=== PATIENT | female | born 1965 | race Two or more races ===

== ENCOUNTER 2017-02-22 05:47 | Emergency (ER) | payer MEDICAID ==
[~2017-02-22] VITALS: Ht 183.5 cm; Wt 146.1 kg
[~2017-02-22 05:47] MED LIST: ALBUTEROL SULF8.5 GM INH; AMOXICILLIN500 MG PO; ANUSOL-HC CREAM30 GM RECTAL; AZITHROMYCIN250 MG PO; CORTISPORIN10 ML OT; DOXYCYCLINE MO100 MG PO; FLOVENT2 PUFFS INH; IBUPROFEN600 MG PO; LOSARTAN-HCTZ1 EACH PO; PHENERGAN/CODE120 ML ORAL; PHENERGAN/CODE120 ML PO; PREDNISONE50 MG ORAL; PREDNISONE50 MG PO; PREMPRO 0.625-1 EAC1 PO; PRILOSEC40 MG PO; PROAIR HFA8.5 GM INH; PULMICORT FLEX90 MCG IH; SINGULAIR10 MG PO; SYNTHROID100 MCG PO; VENTOLIN HFA18 GM INH; VICODIN 5-5001 EACH PO; ZANTAC150 MG PO; ZITHROMAX250 MG ORAL
--- NOTE | 2017-02-22 06:20 | Emergency Room Report ---
History of Present Illness General Chief Complaint: Female Urogenital Problems Source: Patient Present Illness [facility] This is a 51-year-old female with no significant past medical history. She presents with chief complaint of vaginal bleeding. She is currently in perimenopausal. She had a menstrual cycle last month. She said it was heavy. He came on again yesterday. She said she is bleeding excessively. Better her definition, excessive is 3 pads all day. She came in this morning because she' s went to the bathroom and had blood in the toilet. No lightheadedness. No dizziness. No abdominal pain. Mild cramp. No other complaint. Allergies: Coded Allergies: No Known Allergies (Unverified , 08/16/12) Patient History Past Medical History: see triage record, old chart reviewed Past Surgical History: other Pertinent Family History: none Social History: Denies: smoking Last Menstrual Period: now Now: No Immunizations: other Reviewed Nursing Documentation: PMH: Agreed, PSxH: Agreed Nursing Documentation-PMH Hx Hypertension: Yes Hx Asthma: Yes - BRONCHITIS Hx Gastrointestinal Problems: Yes - ACID REFLUX Review of Systems Eye: Denies: blurred vision, eye pain ENT: Denies: ear pain, nose congestion, throat swelling Respiratory: Denies: cough, shortness of breath Cardiovascular: Denies: chest pain, palpitations Gastrointestinal: Denies: abdominal pain, diarrhea, nausea, vomiting Genitourinary: Reports: vag bleed/dc Musculoskeletal: Denies: back pain, joint pain Skin: Denies: rash Neurological: Denies: headache, numbness Endocrine: Denies: increased thirst, increased urine Hematologic/Lymphatic: Denies: easy bruising All Other Systems: negative except mentioned in HPI Physical Exam Vital Signs Date Time Temp Pulse Resp B/P Pulse Ox O2 Delivery O2 Flow Rate FiO2 02/22/17 05:51 98.4 102 20 142/92 97 Room Air vitals normal Sp02 EP Interpretation: reviewed, normal General Appearance: well appearing, no apparent distress, alert Head: normocephalic, atraumatic Eyes: bilateral eye EOMI, bilateral eye PERRL ENT: hearing grossly normal, normal pharynx Neck: full range of motion, supple, no meningismus Respiratory: chest non-tender, lungs clear, normal breath sounds Cardiovascular #1: regular rate, rhythm, no murmur Gastrointestinal: normal bowel sounds, non tender, no mass, no organomegaly, no bruit, non-distended Genitourinary: other - Patient refused a pelvic exam Musculoskeletal: back normal, gait/station normal, normal range of motion Neurologic: alert, oriented x3 Psychiatric: mood/affect normal Skin: warm/dry Medical Decision Making Diagnostic Impression: Primary Impression: Dysfunctional uterine bleeding ER Course Patient with uterine bleeding. 3 pads in one day is not excessive. Hemoglobin is stable. She wanted to be on control pill. Explained to her with her age, she has increased risk for PE/DVT. She is almost at menopause already. I am uncomfortable prescribing on oral therapy at this stage. She can be referred to an oncologist. She said she will be able to see one for a month. She got mad this and never made appointment. Last Vital Signs Date Time Temp Pulse Resp B/P Pulse Ox O2 Delivery O2 Flow Rate FiO2 02/22/17 05:51 98.4 102 20 142/92 97 Room Air Status: improved Disposition: HOME, SELF-CARE Condition: Stable Referrals: [facility],REFERRING (PCP) Additional Instructions: Followup with your DrSweta in 7 days. You will need a referral to see a resident advisor. Return if symptom worsen. JACOB MCKENNA M.D. Feb 22, 2017 06:20
[2017-02-22 06:32] LABS: BASOPHILS % (AUTO) 1.1 % (0.0-2.0); LYMPHOCYTES % (AUTO) 45.3 % (20.0-45.0); MEAN CORPUSCULAR HGB CONC 32.2 G/DL (32.0-36.0); MEAN CORPUSCULAR VOLUME 84 FL (80-99); MEAN PLATELET VOLUME 5.7 FL (6.5-10.1); MONOCYTES % (AUTO) 6.2 % (1.0-10.0); NEUTROPHILS % (AUTO) 44.3 % (45.0-75.0); PLATELET COUNT 375 K/UL (150-450); RED BLOOD COUNT 5.11 M/UL (4.20-5.40); RED CELL DISTRIBUTION WIDTH 12.7 % (11.6-14.8); WHITE BLOOD COUNT 10.4 K/UL (4.8-10.8)
[2017-02-22 06:46] VITALS: BP 145/90
== END 2017-02-22 06:49 | disposition home or self-care (01) ==
LOC: EMR 06:09
DX: N93.8 Other specified abnormal uterine and vaginal bleeding (principal); I10 Essential (primary) hypertension; J45.909 Unspecified asthma, uncomplicated; K21.9 Gastro-esophageal reflux disease without esophagitis
CPT/HCPCS: 36415; 85025; 99282

== ENCOUNTER 2017-04-04 09:21 | Emergency (ER) | payer MEDICAID ==
[~2017-04-04] VITALS: Ht 182.9 cm; Wt 98.0 kg
[2017-04-04] MEDS ORDERED: METFORMIN HCL500 M1 ORAL (09:38)
[2017-04-04 09:40] VITALS: BP 147/89
[2017-04-04] MEDS ORDERED: PREDNISONE20 MG ORAL (10:06)
[2017-04-04] MEDS ORDERED: ACETAMINOPHEN-1 EAC1 ORAL (10:06)
[2017-04-04] MEDS ORDERED: PredniSONE 20mg tab ORAL ONE (10:15)
[2017-04-04 10:17] VITALS: BP 147/89
--- NOTE | 2017-04-04 10:45 | Emergency Room Report ---
History of Present Illness General Chief Complaint: Dyspnea/Respdistress Source: Patient Present Illness HPI [id number] [employer] walk-in patient with 1 month of productive cough. Finished clarithromycin Abx from PMD Has asthma, using inhalers as well Still with lots of sputum Denies chest pain, fever/chills Allergies: Coded Allergies: No Known Allergies (Unverified , 08/16/12) Patient History Past Medical History: none Past Surgical History: none Pertinent Family History: none Social History: Denies: alcohol use, drug use, smoking Last Menstrual Period: na Now: No Immunizations: UTD Reviewed Nursing Documentation: PMH: Agreed, PSxH: Agreed Nursing Documentation-PMH Past Medical History: No History, Except For Hx Hypertension: Yes Hx Asthma: Yes - BRONCHITIS Hx Diabetes: Yes Hx Gastrointestinal Problems: Yes - gerd History Of Psychiatric Problem: Yes - anxiety Review of Systems All Other Systems: negative except mentioned in HPI Physical Exam Vital Signs Date Time Temp Pulse Resp B/P Pulse Ox O2 Delivery O2 Flow Rate FiO2 04/04/17 09:24 98.2 95 22 147/89 97 Room Air Sp02 EP Interpretation: reviewed, normal General Appearance: normal inspection, well appearing, no apparent distress, alert, GCS 15, non-toxic Head: normocephalic, atraumatic Eyes: bilateral eye EOMI, bilateral eye PERRL ENT: normal ENT inspection, hearing grossly normal, normal voice Neck: normal inspection, full range of motion, supple, no bony tend Respiratory: normal inspection, lungs clear, normal breath sounds, no respiratory distress, no retraction, no accessory muscle use, no wheezing, speaking full sentences Cardiovascular #1: regular rate, rhythm, no edema Gastrointestinal: normal inspection, normal bowel sounds, non tender, soft, no guarding, no hernia Genitourinary: no CVA tenderness Musculoskeletal: normal inspection, back normal, normal range of motion, Stephanie' s Sign negative Neurologic: normal inspection, alert, oriented x3, responsive, 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 Afebrile. Not hypoxic. No wheezing. Lungs CTAB Not in asthma exacerbation CXR no PNA Likely continued bronchitis Reassured patient Gave prednisone Rx prednisone Close PMD followup Chest X-Ray Diagnostic Results Chest X-Ray Diagnostic Results : Chest X-Ray Ordered: Yes # of Views/Limited/Complete: 1 View Indication: Shortness of Breath EP Interpretation: Yes Interpretation: no consolidation, no effusion, no pneumothorax, no acute cardiopulmonary disease Impression: No acute disease Interpreting ER Provider: Electronically signed by Dr Keen Last Vital Signs Date Time Temp Pulse Resp B/P Pulse Ox O2 Delivery O2 Flow Rate FiO2 04/04/17 10:17 98.2 95 22 147/89 97 Room Air Status: improved Disposition: HOME, SELF-CARE Condition: Improved Scripts Acetaminophen With Codeine (T#3) (TYLENOL #3 TAB*) Y Tab 1 TAB ORAL QHS Y for cough, pain for 7 Days, #20 TAB Prov: CHRISTOPHER KEEN M.D. 04/04/17 Prednisone* (PREDNISONE*) 20 Mg Tablet 40 MG ORAL DAILY for 3 Days, #3 TAB Prov: CHRISTOPHER KEEN M.D. 04/04/17 Patient Instructions: Acute Bronchitis, [id number] Additional Instructions: - Take prednisone once daily for next 3 days - Use tylenol codeine at night for cough/chest pain/sleep - Continue to use inhalers as needed for cough, shortness of breath, during the day bronchitis symptoms can last 6-8 weeks CHRISTOPHER KEEN M.D. Apr 04, 2017 10:45
--- NOTE | 2017-04-04 11:25 | Diagnostic Imaging Report ---
Indication: Dyspnea Comparison: 12/23/12 A single view chest radiograph was obtained. Findings: Cardiomediastinal appearance is within normal limits for age. Pulmonary vascularity is appropriate. The diaphragmatic contour is smooth and costophrenic angles are sharp. No pleural effusions are identified. The bones are unremarkable. Impression: No acute findings
== END 2017-04-04 10:17 | disposition home or self-care (01) ==
LOC: EMR 09:44
DX: J20.9 Acute bronchitis, unspecified (principal); F41.9 Anxiety disorder, unspecified; K21.9 Gastro-esophageal reflux disease without esophagitis; E11.9 Type 2 diabetes mellitus without complications; J45.909 Unspecified asthma, uncomplicated; I10 Essential (primary) hypertension
CPT/HCPCS: 71010; 99284

== ENCOUNTER 2017-08-04 12:52 | Emergency (ER) | payer MEDICAID ==
[~2017-08-04] VITALS: Ht 182.9 cm; Wt 141.5 kg
[~2017-08-04 12:52] MED LIST changes: +ACETAMINOPHEN-1 EAC1 ORAL; +METFORMIN HCL500 M1 ORAL; +PREDNISONE20 MG ORAL
[2017-08-04] MEDS ORDERED: Ipratropium 0.02% Inh Soln 2.5ml UD HHN ONE (13:30)
[2017-08-04] MEDS: Albuterol ud Inhalation HHN SCH ×3 (13:32→14:07)
--- NOTE | 2017-08-04 15:13 | Emergency Room Report ---
History of Present Illness General Chief Complaint: Flu Like Symptoms Source: Patient Present Illness HPI Patient presents with wheezing and productive cough with thick green sputum. Hard to expectorate. Only using nebulizer twice daily. She has run out of her inhaler. No fevers or sore throat. Some chest pain with coughing. Coughing violently in he AM to the point of having some stress incontinence (minimal). Pain in chest rated 4/10, aching, anterior, not radiating. She has taken prednisone in the past. This is not her worst attack and she states this is usually what happens when she gets bronchitis with her asthma, though the sputum is thicker. No NVD, rashes, headache. No dysuria. No muscle aches. Therefore, she is fairly certain this is not influenza. Allergies: Coded Allergies: No Known Allergies (Unverified , 08/16/12) Patient History Past Medical History: see triage record Social History: Denies: smoking Social History Narrative at home Reviewed Nursing Documentation: PMH: Agreed, PSxH: Agreed Nursing Documentation-PMH Hx Hypertension: Yes Hx Asthma: Yes - BRONCHITIS Hx Diabetes: Yes Hx Gastrointestinal Problems: Yes - gerd Review of Systems All Other Systems: negative except mentioned in HPI Physical Exam Vital Signs Date Time Temp Pulse Resp B/P (MAP) Pulse Ox O2 Delivery O2 Flow Rate FiO2 08/04/17 12:57 98.1 103 20 149/101 99 Room Air 08/04/17 13:33 21 Sp02 EP Interpretation: reviewed, normal General Appearance: well appearing, no apparent distress, GCS 15 Head: normocephalic Eyes: bilateral eye normal inspection, bilateral eye PERRL ENT: moist mucus membranes Neck: supple Respiratory: no accessory muscle use, wheezing, expiration Cardiovascular #1: regular rate, rhythm Cardiovascular #2: 2+ radial (R) Gastrointestinal: normal inspection, normal bowel sounds, non tender, no mass, non-distended, overweight Musculoskeletal: back normal, gait/station normal, normal range of motion, no calf tenderness Neurologic: alert, oriented x3, grossly normal Psychiatric: mood/affect normal Skin: normal inspection, warm/dry Medical Decision Making Diagnostic Impression: Primary Impression: Asthmatic bronchitis with acute exacerbation Qualified Codes: J45.41 - Moderate persistent asthma with (acute) exacerbation ER Course Patient presents with wheezing and productive cough. DDx: pna, asthmatic bronchitis, COPD exacerbation amongst others. VS against PE. No vomiting and afebrile, so labs not indicated. With chest pressure EKG indicated. Also CXR to exclude pneumonia. Treatment with prednisone and breathing treatments. With productive and colored sputum, antibiotics indicated. EKG without injury. CXR without infiltrate. Improved with treatment. Stable for outpatient observation and treatment. EKG Diagnostic Results Rate: normal Rhythm: NSR ST Segments: no acute changes Rhythm Strip Diag. Results EP Interpretation: yes Rhythm: NSR, no PVC's, no ectopy Chest X-Ray Diagnostic Results Chest X-Ray Diagnostic Results : Chest X-Ray Ordered: Yes # of Views/Limited/Complete: 1 View Indication: Other EP Interpretation: Yes Interpretation: no consolidation, no effusion, no pneumothorax, no acute cardiopulmonary disease Impression: No acute disease Electronically Signed by: Melchor Braswell MD Last Vital Signs Date Time Temp Pulse Resp B/P (MAP) Pulse Ox O2 Delivery O2 Flow Rate FiO2 08/04/17 15:33 86 18 143/85 96 Room Air 08/04/17 15:33 98.5 08/04/17 14:18 21 O2 sat slightly low as interpreted by me but talking in full sentences without dyspnea. Status: improved Disposition: HOME, SELF-CARE Condition: Improved Scripts Clarithromycin* (CLARITHROMYCIN*) 500 Mg Tablet 500 MG PO Q12HR, #14 TAB Prov: Roger Myers 08/04/17 Albuterol Sulfate* (ALBUTEROL SULFATE MDI*) 8.5 Gm Hfa.aer.ad 2 PUFF INH Q6H, #1 EA 1 Refill Prov: Melchor Braswell M.D. 08/04/17 Prednisone* (PREDNISONE*) 20 Mg Tablet 40 MG ORAL DAILY, #10 TAB Prov: Melchor Braswell M.D. 08/04/17 Guaifenesin/Codeine Phos* (ROBITUSSIN AC*) 118 Ml Liquid 5 ML ORAL Q6H Y for For Cough, #118 ML 0 Refills Prov: Melchor Braswell M.D. 08/04/17 Referrals: [facility],REFERRING (PCP) Melchor Braswell M.D. Aug 04, 2017 15:13
[2017-08-04] MEDS ORDERED: Levofloxacin 500mg tab ORAL ONE (15:15)
[2017-08-04] MEDS ORDERED: GUAIFENESIN-CO118 M1 ORAL (15:16)
[2017-08-04] MEDS ORDERED: LEVAQUIN500 MG ORAL (15:16)
[2017-08-04] MEDS ORDERED: PREDNISONE20 MG ORAL (15:16)
[2017-08-04] MEDS ORDERED: ALBUTEROL SULF8.5 GM INH (15:16)
[2017-08-04 15:33] VITALS: BP 135/82
[2017-08-04] MEDS ORDERED: CLARITHROMYCIN500 MG PO (20:25)
--- NOTE | 2017-08-23 14:52 | Cardiology Report ---
APPROVED REPORT EKG Measurement Heart [id number] Normal sinus rhythm Normal ECG
== END 2017-08-04 15:42 | disposition home or self-care (01) ==
LOC: EMR 13:10
DX: J45.901 Unspecified asthma with (acute) exacerbation (principal); E11.9 Type 2 diabetes mellitus without complications; I10 Essential (primary) hypertension; K21.9 Gastro-esophageal reflux disease without esophagitis
CPT/HCPCS: 93005; 94640; 94664; 99284

== ENCOUNTER 2017-08-16 16:29 | Emergency (ER) | payer MEDICAID ==
[~2017-08-16] VITALS: Ht 182.9 cm; Wt 141.5 kg
[~2017-08-16 16:29] MED LIST changes: +CLARITHROMYCIN500 MG PO; +GUAIFENESIN-CO118 M1 ORAL; +LEVAQUIN500 MG ORAL
[2017-08-16 17:00] VITALS: BP 129/72
[2017-08-16] MEDS ORDERED: Albuterol ud Inhalation HHN ONE (17:00)
--- NOTE | 2017-08-16 17:41 | Diagnostic Imaging Report ---
Indication: SOB Technique: One view of the chest Comparison: none Findings: Lungs and pleural spaces are clear. Heart size is normal. No significant change Impression: No acute process
[2017-08-16 18:43] LABS: BASOPHILS % (AUTO) 1.1 % (0.0-2.0); EOSINOPHILS % (AUTO) 2.3 % (0.0-3.0); LYMPHOCYTES % (AUTO) 45.4 % (20.0-45.0); MEAN CORPUSCULAR HEMOGLOBIN 26.3 PG (27.0-31.0); MEAN CORPUSCULAR HGB CONC 30.7 G/DL (32.0-36.0); MEAN CORPUSCULAR VOLUME 86 FL (80-99); MEAN PLATELET VOLUME 5.5 FL (6.5-10.1); MONOCYTES % (AUTO) 5.5 % (1.0-10.0); NEUTROPHILS % (AUTO) 45.6 % (45.0-75.0); PLATELET COUNT 370 K/UL (150-450); RED BLOOD COUNT 5.39 M/UL (4.20-5.40); RED CELL DISTRIBUTION WIDTH 12.9 % (11.6-14.8); WHITE BLOOD COUNT 13.7 K/UL (4.8-10.8)
[2017-08-16 19:03] LABS: ANION GAP 9 mmol/L (5-15); CALCIUM 9.5 MG/DL (8.5-10.1); CARBON DIOXIDE 30 MMOL/L (21-32); CHLORIDE 101 MMOL/L (98-107); CREATININE 0.9 MG/DL (0.55-1.30); GLOMERULAR FILTRATION RATE > 60 mL/min (>60); POTASSIUM 3.8 MMOL/L (3.5-5.1); SODIUM 140 MMOL/L (136-145)
[2017-08-16 19:07] LABS: ALANINE AMINOTRANSFERASE 39 U/L (12-78); ASPARTATE AMINO TRANSFERASE 19 U/L (15-37)
--- NOTE | 2017-08-16 19:39 | Emergency Room Report ---
History of Present Illness General Chief Complaint: Upper Respiratory Illness Source: Patient Present Illness HPI Patient states that she has had 3 weeks of cough and congestion with thick sputum production. She states that the sputum is thick and green. She does have a history of asthma. She does use an albuterol inhaler. She states she also has had difficulty breathing. She denies fever or chills. She did see another physician and underwent a course of antibiotics a couple weeks ago. She states that her symptoms have not improved. She denies chest pain. She has no other complaints. Allergies: Coded Allergies: No Known Allergies (Unverified , 08/16/12) Patient History Past Medical History: see triage record, DM, HTN, asthma Social History: Denies: smoking, alcohol use, drug use Reviewed Nursing Documentation: PMH: Agreed, PSxH: Agreed Nursing Documentation-PMH Hx Hypertension: Yes Hx Asthma: Yes - BRONCHITIS Hx Diabetes: Yes Hx Gastrointestinal Problems: Yes - gerd Review of Systems All Other Systems: negative except mentioned in HPI Physical Exam Vital Signs Date Time Temp Pulse Resp B/P (MAP) Pulse Ox O2 Delivery O2 Flow Rate FiO2 08/16/17 16:38 98.2 82 16 145/100 98 Room Air 08/16/17 17:00 97 Sp02 EP Interpretation: reviewed, normal General Appearance: no apparent distress, alert, GCS 15, non-toxic Head: normocephalic, atraumatic Eyes: bilateral eye normal inspection, bilateral eye PERRL ENT: hearing grossly normal, normal pharynx, no angioedema, normal voice Neck: full range of motion, supple/symm/no masses Respiratory: chest non-tender, lungs clear, normal breath sounds, speaking full sentences Cardiovascular #1: regular rate, rhythm, no edema Gastrointestinal: normal bowel sounds, non tender, soft, non-distended, no guarding, no rebound Rectal: deferred Musculoskeletal: back normal, gait/station normal, normal range of motion, non- tender Neurologic: alert, oriented x3, responsive, motor strength/tone normal, sensory intact, speech normal Psychiatric: judgement/insight normal, memory normal, mood/affect normal, no suicidal/homicidal ideation Skin: normal color, no rash, warm/dry, well hydrated Medical Decision Making Diagnostic Impression: Primary Impression: Acute bronchitis Additional Impression: Asthmatic bronchitis with acute exacerbation ER Course This patient has a clinical presentation consistent with asthma exacerbation and bronchitis. Patient has a history of asthma although she does have clear lungs on physical exam. The patient was given albuterol and Atrovent nebulizer treatments. The patient had significant improvement in subjective shortness of breath. The patient's lung exam improved significantly. I will also treat the patient with a course of antibiotics as this has been shown to improve the course of an asthma exacerbation and given the patient has thick green sputum production. I will also place her on a short course of steroids. The patient was given close return precautions and followup instructions. Laboratory Tests Test 08/16/17 18:25 White Blood Count 13.7 K/UL (4.8-10.8) H Red Blood Count 5.39 M/UL (4.20-5.40) Hemoglobin 14.2 G/DL (12.0-16.0) Hematocrit 46.1 % (37.0-47.0) Mean Corpuscular Volume 86 FL (80-99) Mean Corpuscular Hemoglobin 26.3 PG (27.0-31.0) L Mean Corpuscular Hemoglobin Concent 30.7 G/DL (32.0-36.0) L Red Cell Distribution Width 12.9 % (11.6-14.8) Platelet Count 370 K/UL (150-450) Mean Platelet Volume 5.5 FL (6.5-10.1) L Neutrophils (%) (Auto) 45.6 % (45.0-75.0) Lymphocytes (%) (Auto) 45.4 % (20.0-45.0) H Monocytes (%) (Auto) 5.5 % (1.0-10.0) Eosinophils (%) (Auto) 2.3 % (0.0-3.0) Basophils (%) (Auto) 1.1 % (0.0-2.0) Sodium Level 140 MMOL/L (136-145) Potassium Level 3.8 MMOL/L (3.5-5.1) Chloride Level 101 MMOL/L (98-107) Carbon Dioxide Level 30 MMOL/L (21-32) Anion Gap 9 mmol/L (5-15) Blood Urea Nitrogen 13 mg/dL (7-18) Creatinine 0.9 MG/DL (0.55-1.30) Estimate Glomerular Filtration Rate > 60 mL/min (>60) Glucose Level 141 MG/DL (74-106) H Calcium Level 9.5 MG/DL (8.5-10.1) Total Bilirubin 0.4 MG/DL (0.2-1.0) Aspartate Amino Transferase (AST) 19 U/L (15-37) Alanine Aminotransferase (ALT) 39 U/L (12-78) Alkaline Phosphatase 116 U/L (46-116) Total Protein 8.0 G/DL (6.4-8.2) Albumin 3.9 G/DL (3.4-5.0) Globulin 4.1 g/dL Albumin/Globulin Ratio 1.0 (1.0-2.7) EKG Diagnostic Results Rate: normal Rhythm: NSR ST Segments: no acute changes Rhythm Strip Diag. Results EP Interpretation: yes Rate: 70's Rhythm: NSR, no PVC's, no ectopy Chest X-Ray Diagnostic Results Chest X-Ray Diagnostic Results : Chest X-Ray Ordered: Yes # of Views/Limited/Complete: 1 View Indication: Shortness of Breath EP Interpretation: No Interpretation: no consolidation, no effusion, no pneumothorax, no acute cardiopulmonary disease Last Vital Signs Date Time Temp Pulse Resp B/P (MAP) Pulse Ox O2 Delivery O2 Flow Rate FiO2 08/16/17 17:50 86 18 100 Room Air 08/16/17 17:00 98.4 129/72 08/16/17 17:00 97 Status: improved Disposition: HOME, SELF-CARE Condition: Improved Referrals: [facility],REFERR[facility] (PCP) REGINO DAWSON D.O. Aug 16, 2017 19:39
[2017-08-16] MEDS ORDERED: PREDNISONE20 MG ORAL (19:41)
[2017-08-16] MEDS ORDERED: ZITHROMAX250 MG ORAL (19:41)
[2017-08-16 19:51] VITALS: BP_SYST 129; BP_SYST 132; BP_DIAS 72; BP_DIAS 76
--- NOTE | 2017-08-17 16:50 | Cardiology Report ---
APPROVED REPORT EKG Measurement Heart [id number] Normal sinus rhythm Normal ECG
== END 2017-08-16 19:52 | disposition home or self-care (01) ==
LOC: EMR 18:07
DX: J20.9 Acute bronchitis, unspecified (principal); J45.901 Unspecified asthma with (acute) exacerbation; E11.9 Type 2 diabetes mellitus without complications; I10 Essential (primary) hypertension; K21.9 Gastro-esophageal reflux disease without esophagitis
CPT/HCPCS: 36415; 71010; 80053; 85025; 93005; 94640; 94664; 99284

== ENCOUNTER 2017-09-06 09:17 | Emergency (ER) | payer MEDICAID ==
[~2017-09-06] VITALS: Ht 182.9 cm; Wt 139.7 kg
[2017-09-06 09:22] VITALS: BP 127/83
[2017-09-06] MEDS ORDERED: Lidocaine 2% Visc 15ml soln ORAL ONE (09:45)
[2017-09-06] MEDS ORDERED: Mylanta II UD 30ml ORAL ONE (09:45)
[2017-09-06] MEDS ORDERED: Dicyclomine HCl 10mg/5ml oral soln ORAL ONE (09:45)
[2017-09-06 10:24] LABS: BASOPHILS % (AUTO) 0.6 % (0.0-2.0); EOSINOPHILS % (AUTO) 0.2 % (0.0-3.0); LYMPHOCYTES % (AUTO) 38.1 % (20.0-45.0); MEAN CORPUSCULAR HEMOGLOBIN 26.5 PG (27.0-31.0); MEAN CORPUSCULAR HGB CONC 31.2 G/DL (32.0-36.0); MEAN CORPUSCULAR VOLUME 85 FL (80-99); MONOCYTES % (AUTO) 11.2 % (1.0-10.0); NEUTROPHILS % (AUTO) 49.9 % (45.0-75.0); PLATELET COUNT 276 K/UL (150-450); RED BLOOD COUNT 5.73 M/UL (4.20-5.40); RED CELL DISTRIBUTION WIDTH 12.4 % (11.6-14.8); WHITE BLOOD COUNT 3.6 K/UL (4.8-10.8)
[2017-09-06 10:34] LABS: ANION GAP 7 mmol/L (5-15); CALCIUM 9.3 MG/DL (8.5-10.1); CARBON DIOXIDE 30 MMOL/L (21-32); CHLORIDE 100 MMOL/L (98-107); CREATININE 0.9 MG/DL (0.55-1.30); GLOMERULAR FILTRATION RATE > 60 mL/min (>60); POTASSIUM 3.4 MMOL/L (3.5-5.1); SODIUM 137 MMOL/L (136-145)
[2017-09-06 10:38] LABS: ALANINE AMINOTRANSFERASE 34 U/L (12-78); ALBUMIN/GLOBULIN RATIO 0.8 (1.0-2.7); ASPARTATE AMINO TRANSFERASE 17 U/L (15-37); LIPASE 79 U/L (73-393); TOTAL PROTEIN 7.6 G/DL (6.4-8.2)
[2017-09-06] MEDS ORDERED: BENTYL10 MG ORAL (11:04)
[2017-09-06] MEDS ORDERED: RANITIDINE HCL150 MG ORAL (11:04)
[2017-09-06] MEDS ORDERED: ZOFRAN ODT4 MG ORAL (11:04)
[2017-09-06 11:23] VITALS: BP 124/78
[2017-09-06 11:34] VITALS: BP 121/78
--- NOTE | 2017-09-06 12:25 | Emergency Room Report ---
History of Present Illness General Chief Complaint: Abdominal Pain Source: Patient, Medical Record Present Illness HPI 52-year-old female presents ED complaining of abdominal pain with vomiting and diarrhea. Started 4 days ago. Pain is cramping, 7/10, nonradiating. Notes multiple episodes of diarrhea. Denies fevers or chills. Denies chest pain or shortness of breath. Denies sick contacts or recent travel. Denies recent antibiotic use. No other aggravating relieving factors. Denies any other associated symptoms Allergies: Coded Allergies: No Known Allergies (Unverified , 08/16/12) Patient History Past Medical History: DM, HTN, GERD Past Surgical History: none Pertinent Family History: none Social History: Denies: smoking, alcohol use, drug use Last Menstrual Period: 6 months ago Now: No Immunizations: UTD Reviewed Nursing Documentation: PMH: Agreed, PSxH: Agreed Nursing Documentation-PMH Past Medical History: No History, Except For Hx Hypertension: Yes Hx Asthma: Yes - BRONCHITIS Hx Diabetes: Yes Hx Gastrointestinal Problems: Yes - gerd Review of Systems All Other Systems: negative except mentioned in HPI Physical Exam Vital Signs Date Time Temp Pulse Resp B/P (MAP) Pulse Ox O2 Delivery O2 Flow Rate FiO2 09/06/17 09:22 97.9 105 18 127/83 97 Room Air Sp02 EP Interpretation: reviewed, normal General Appearance: no apparent distress, alert, GCS 15, non-toxic Head: normocephalic, atraumatic Eyes: bilateral eye normal inspection, bilateral eye PERRL ENT: hearing grossly normal, normal pharynx, no angioedema, normal voice Neck: full range of motion, supple/symm/no masses Respiratory: chest non-tender, lungs clear, normal breath sounds, speaking full sentences Cardiovascular #1: regular rate, rhythm, no edema Cardiovascular #2: 2+ carotid (R), 2+ carotid (L), 2+ radial (R), 2+ radial (L) , 2+ dorsalis pedis (R), 2+ dorsalis pedis (L) Gastrointestinal: normal bowel sounds, soft, non-distended, no guarding, no rebound, tenderness Rectal: deferred Genitourinary: normal inspection, no CVA tenderness Musculoskeletal: back normal, gait/station normal, normal range of motion, non- tender Neurologic: alert, oriented x3, responsive, motor strength/tone normal, sensory intact, speech normal Psychiatric: judgement/insight normal, memory normal, mood/affect normal, no suicidal/homicidal ideation Reflexes: 3+ bicep (R), 3+ bicep (L), 3+ tricep (R), 3+ tricep (L), 3+ knee (R) , 3+ knee (L) Skin: normal color, no rash, warm/dry, well hydrated Lymphatic: no adenopathy Medical Decision Making Diagnostic Impression: Primary Impression: Gastroenteritis ER Course Hospital Course 52-year-old F presents to ED with cramping abdominal pain with vomiting, diarrhea differential diagnosis: gastritis, SBO, cholecystits, gastroenteritis Clinical course Patient placed on stretcher. On cardiac rehab nurse. After initial history and physical I ordered labs, IV fluids, Zofran, pepcid Labs - no leukocytosis, electrolytes ok, LFTs normal, UA unremarkable Upon reassessment, patient states pain has improved. findings consistent with gastroenteritis I feel this is a highly complex case requiring extensive working including EKG/ Rhythm strip, Xray/CT/US, Blood/urine lab work, repeat exams while in ED, and administration of strong opiates/narcotics for pain control, admission to hospital or close patient follow up. Diagnosis - gastroenteritis Stable and discharged to home with prescriptions for Zantac, zofran. Followup with PMD. Return to ED if symptoms recur or worsen Labs Test 09/06/17 09:50 White Blood Count 3.6 K/UL (4.8-10.8) Red Blood Count 5.73 M/UL (4.20-5.40) Hemoglobin 15.2 G/DL (12.0-16.0) Hematocrit 48.6 % (37.0-47.0) Mean Corpuscular Volume 85 FL (80-99) Mean Corpuscular Hemoglobin 26.5 PG (27.0-31.0) Mean Corpuscular Hemoglobin Concent 31.2 G/DL (32.0-36.0) Red Cell Distribution Width 12.4 % (11.6-14.8) Platelet Count 276 K/UL (150-450) Mean Platelet Volume 6.0 FL (6.5-10.1) Neutrophils (%) (Auto) 49.9 % (45.0-75.0) Lymphocytes (%) (Auto) 38.1 % (20.0-45.0) Monocytes (%) (Auto) 11.2 % (1.0-10.0) Eosinophils (%) (Auto) 0.2 % (0.0-3.0) Basophils (%) (Auto) 0.6 % (0.0-2.0) Sodium Level 137 MMOL/L (136-145) Potassium Level 3.4 MMOL/L (3.5-5.1) Chloride Level 100 MMOL/L (98-107) Carbon Dioxide Level 30 MMOL/L (21-32) Anion Gap 7 mmol/L (5-15) Blood Urea Nitrogen 8 mg/dL (7-18) Creatinine 0.9 MG/DL (0.55-1.30) Estimat Glomerular Filtration Rate > 60 mL/min (>60) Glucose Level 169 MG/DL (74-106) Calcium Level 9.3 MG/DL (8.5-10.1) Total Bilirubin 0.3 MG/DL (0.2-1.0) Aspartate Amino Transf (AST/SGOT) 17 U/L (15-37) Alanine Aminotransferase (ALT/SGPT) 34 U/L (12-78) Alkaline Phosphatase 95 U/L (46-116) Total Protein 7.6 G/DL (6.4-8.2) Albumin 3.4 G/DL (3.4-5.0) Globulin 4.2 g/dL Albumin/Globulin Ratio 0.8 (1.0-2.7) Lipase 79 U/L (73-393) Last Vital Signs Date Time Temp Pulse Resp B/P (MAP) Pulse Ox O2 Delivery O2 Flow Rate FiO2 09/06/17 11:34 98.3 85 17 121/78 99 Room Air Status: improved Disposition: HOME, SELF-CARE Condition: Stable Scripts Ondansetron Odt* (ZOFRAN ODT*) 4 Mg Tab.rapdis 4 MG ORAL Q6H Y for Nausea & Vomiting, #30 TAB 0 Refills Prov: CLINT HERNÁNDEZ M.D. 09/06/17 Ranitidine Hcl* (ZANTAC*) 150 Mg Tablet 150 MG ORAL TWICE A DAY, #30 TAB Prov: CLINT HERNÁNDEZ M.D. 09/06/17 Dicyclomine Hcl* (BENTYL*) 10 Mg Capsule 10 MG ORAL FOUR TIMES A DAY, #20 CAP Prov: CLINT HERNÁNDEZ M.D. 09/06/17 Patient Instructions: Viral Gastroenteritis, Adult, [id number] CLINT HERNÁNDEZ M.D. Sep 06, 2017 12:25
== END 2017-09-06 11:34 | disposition home or self-care (01) ==
LOC: EMR 10:55
DX: K52.9 Noninfective gastroenteritis and colitis, unspecified (principal); E11.9 Type 2 diabetes mellitus without complications; I10 Essential (primary) hypertension; K21.9 Gastro-esophageal reflux disease without esophagitis
CPT/HCPCS: 36415; 80053; 83690; 85025; 96361; 96374; 96375; 99284; J2405; S0028

== ENCOUNTER 2018-01-19 11:42 | Emergency (ER) | payer MEDICAID ==
[~2018-01-19] VITALS: Ht 180.3 cm; Wt 142.4 kg
[~2018-01-19 11:42] MED LIST changes: +BENTYL10 MG ORAL; +RANITIDINE HCL150 MG ORAL; +ZOFRAN ODT4 MG ORAL
[2018-01-19] MEDS ORDERED: LOSARTAN POTASS50 MG ORAL (12:02)
[2018-01-19] MEDS ORDERED: Albuterol/Ipratropium 3ml neb HHN ONE (12:15)
--- NOTE | 2018-01-19 12:29 | Emergency Room Report ---
History of Present Illness General Chief Complaint: Upper Respiratory Illness Source: Patient Present Illness HPI 52-year-old female presents to the emergency department complaining of productive cough 2 weeks with history of asthma. Patient states that her symptoms have not improved with at-home albuterol inhaler and she also used some previously codeine cough syrup. She denies fevers or chills she reports she is spitting up green sputum. Patient denies swelling of the lower extremities, history of heart disease, has pain or palpitations. Patient reports continued wheezes, and very persistent cough. Denies dizziness, lightheadedness, syncope, sensory headache, or claudication. Denies sore throat , ear pain, neck pain or stiffness. Denies pain at this time. Allergies: Coded Allergies: No Known Allergies (Unverified , 08/16/12) Patient History Past Medical History: see triage record, asthma Past Surgical History: none Pertinent Family History: none Last Menstrual Period: one week ago Now: No Reviewed Nursing Documentation: PMH: Agreed; PSxH: Agreed Nursing Documentation-PMH Past Medical History: No History, Except For Hx Hypertension: Yes Hx Asthma: Yes Hx Diabetes: Yes Hx Gastrointestinal Problems: Yes - gerd Review of Systems All Other Systems: negative except mentioned in HPI Physical Exam Vital Signs Date Time Temp Pulse Resp B/P (MAP) Pulse Ox O2 Delivery O2 Flow Rate FiO2 01/19/18 11:56 98.6 91 16 138/87 94 Room Air 98.6 01/19/18 12:10 21 Sp02 EP Interpretation: reviewed, normal General Appearance: no apparent distress, alert, GCS 15, non-toxic Head: normocephalic, atraumatic Eyes: bilateral eye normal inspection, bilateral eye PERRL ENT: hearing grossly normal, normal voice Neck: full range of motion Respiratory: chest non-tender, lungs clear, normal breath sounds, no rhonchi, speaking full sentences, wheezing - expiratory wheezes noted Cardiovascular #1: regular rate, rhythm, no edema, normal capillary refill Musculoskeletal: back normal, gait/station normal, normal range of motion Neurologic: alert, oriented x3, responsive, motor strength/tone normal, sensory intact, speech normal, grossly normal Psychiatric: judgement/insight normal Skin: normal color, no rash, warm/dry, well hydrated Lymphatic: no adenopathy Medical Decision Making PA Attestation Dr. Braswell is my supervising Physician whom patient management has been discussed with. Diagnostic Impression: Primary Impression: Atypical pneumonia Additional Impression: Asthmatic bronchitis with acute exacerbation Qualified Codes: J45.21 - Mild intermittent asthma with (acute) exacerbation ER Course 52-year-old female presents to the emergency department complaining of productive cough 2 weeks with history of asthma. Patient states that her symptoms have not improved with at-home albuterol inhaler and she also used some previously codeine cough syrup. She denies fevers or chills she reports she is spitting up green sputum. Patient denies swelling of the lower extremities, history of heart disease, has pain or palpitations. Patient reports continued wheezes, and very persistent cough. Denies dizziness, lightheadedness, syncope, sensory headache, or claudication. Denies sore throat , ear pain, neck pain or stiffness. Denies pain at this time. Ddx considered but are not limited to URI, pneumonia, PE, strep pharyngitis, meningitis. Vital signs: Pt.is afebrile VS are WNL H&PE are most consistent with bronchitis ORDERS: -Pt. Declines CXR. ED INTERVENTIONS: -DuoNeb tx - Pt. has moderate improvement after breathing treatment. oxygen saturation improved from 94% to 98% RA - Due to hx of productive cough x 2 weeks and hx of asthma with acute bronchitis exacerbation, this pt. will be given oral antibiotic RX, as well as course of steroids. -I do not identify an emergent condition at this time. With current presentation , pt. is stable for close outpatient follow up and conservative treatment. D/ w pt. to return promptly to ED with worsening or new symptoms.- Pt. verbalizes her understanding and agreement with proposed treatment plan.proposed treatment plan. DISCHARGE: At this time pt. is stable for d/c to home. Will provide printed patient care instructions, and any necessary prescriptions. Care plan and follow up instructions have been discussed with the patient prior to discharge. Last Vital Signs Date Time Temp Pulse Resp B/P (MAP) Pulse Ox O2 Delivery O2 Flow Rate FiO2 01/19/18 12:20 75 20 98 Room Air 21 01/19/18 11:56 98.6 138/87 98.6 Status: improved Disposition: HOME, SELF-CARE Condition: Stable Scripts Albuterol Sulfate* (ALBUTEROL SULFATE MDI*) 8.5 Gm Hfa.aer.ad 2 PUFF INH Q4H, #1 INH 0 Refills Prov: Pricila Stovall 01/19/18 Codeine/Promethazine Hcl* (PROMETHAZINE-CODEINE SYRUP*) 118 Ml Syrup 5 ML ORAL Q6H PRN for For Cough, #120 ML 0 Refills Prov: Pricila Stovall 01/19/18 Prednisone* (PREDNISONE*) 20 Mg Tablet 40 MG ORAL DAILY for 5 Days, #10 TAB Prov: Pricila Stovall 01/19/18 Azithromycin* (ZITHROMAX*) 250 Mg Tablet 250 MG ORAL DAILY for 5 Days, #6 TAB Prov: Pricila Stovall 01/19/18 Referrals: NON PHYSICIAN (PCP) Patient Instructions: Acute Bronchitis, Puhh-he-[id number] Additional Instructions: Take medications as directed. Follow up with a Primary Care Provider in 3-5 days, even if your symptoms have resolved. --Please review list of primary care clinics, if you do not already have a primary care provider Return sooner to ED if new symptoms occur, or current symptoms become worse. Do not drink alcohol, drive, or operate heavy machinery while taking Cough Syrup as this may cause drowsiness. - Please note that this Emergency Department Report was dictated using [employer] insurance inspector technology software, occasionally this can lead to erroneous entry secondary to interpretation by the dictation equipment. Pricila Stovall January 19, 2018 12:29
[2018-01-19] MEDS ORDERED: ZITHROMAX250 MG ORAL (12:31)
[2018-01-19] MEDS ORDERED: PREDNISONE20 MG ORAL (12:31)
[2018-01-19] MEDS ORDERED: PROMETHAZINE-C118 M1 ORAL (12:31)
[2018-01-19] MEDS ORDERED: ALBUTEROL SULF8.5 GM INH (12:32)
[2018-01-19 13:09] VITALS: BP 138/87
[2018-01-19 13:11] VITALS: BP 138/87
== END 2018-01-19 13:00 | disposition home or self-care (01) ==
LOC: EMR 12:17
DX: J18.9 Pneumonia, unspecified organism (principal); J45.901 Unspecified asthma with (acute) exacerbation; I10 Essential (primary) hypertension; E11.9 Type 2 diabetes mellitus without complications
CPT/HCPCS: 94640; 94664; 99284; J7620

== ENCOUNTER 2018-09-28 14:22 | Emergency (ER) | payer MEDICAID ==
[~2018-09-28] VITALS: Ht 182.9 cm; Wt 145.1 kg
[~2018-09-28 14:22] MED LIST changes: +LOSARTAN POTASS50 MG ORAL; +PROMETHAZINE-C118 M1 ORAL
[2018-09-28 14:50] VITALS: BP 135/10
--- NOTE | 2018-09-28 14:50 | NUR ---
ED Nurse Note: pt walked in ed c/o cat bite and scratch on her left arm today. pt states she has some burning sensation but denies pain at this time. noted small lac and skin abrasion on left arm, no drainage, mild redness but no swelling noted, will cont monitor.
[2018-09-28] MEDS ORDERED: Bacitracin Oint UD TOPIC ONE (15:00)
[2018-09-28] MEDS ORDERED: Tetanus/Diptheria/Pertussis Vaccine 0.5ml Syr IM ONE (15:00)
--- NOTE | 2018-09-28 15:01 | Emergency Room Report ---
History of Present Illness General Chief Complaint: Animal Bite Source: Patient Present Illness HPI 53-year-old female presents to the emergency department complaining of sustaining multiple cat bites approximately one hour ago from her pet cat. Patient states she is not up-to-date with tetanus this however her cat is up-to- date with all of its vaccinations. Patient also reports a few scratches as well. Patient denies taking blood thinning medications or having a history of immunocompromise. She denies pain at this time. She reports some swelling about the bite sites. Allergies: Coded Allergies: No Known Allergies (Unverified , 08/16/12) Patient History Past Medical History: see triage record Past Surgical History: none Pertinent Family History: none Now: No Reviewed Nursing Documentation: PMH: Agreed; PSxH: Agreed Nursing Documentation-PMH Hx Hypertension: Yes Hx Asthma: Yes Hx Diabetes: Yes Hx Gastrointestinal Problems: Yes - gerd Review of Systems All Other Systems: negative except mentioned in HPI Physical Exam Vital Signs Date Time Temp Pulse Resp B/P (MAP) Pulse Ox O2 Delivery O2 Flow Rate FiO2 09/28/18 14:42 98.6 94 16 135/10 96 Room Air Sp02 EP Interpretation: reviewed, normal General Appearance: no apparent distress, alert, GCS 15, non-toxic Head: normocephalic, atraumatic Eyes: bilateral eye normal inspection, bilateral eye PERRL ENT: hearing grossly normal, normal voice Neck: full range of motion Respiratory: lungs clear, normal breath sounds, speaking full sentences Cardiovascular #1: regular rate, rhythm, normal capillary refill Musculoskeletal: back normal, gait/station normal, normal range of motion, non- tender Neurologic: alert, oriented x3, responsive, motor strength/tone normal, sensory intact, speech normal, grossly normal Psychiatric: judgement/insight normal Skin: normal color, no rash, warm/dry, well hydrated, other - multiple small puncture wounds and superficial scratches to the left wrist and forearm. mild swelling about the wounds, no erythema, no warmth, not bleeding at this time. Lymphatic: no adenopathy Medical Decision Making PA Attestation Dr. Anderson is my supervising Physician whom patient management has been discussed with. Diagnostic Impression: Primary Impression: Cat bite Qualified Codes: W55.01XA - Bitten by cat, initial encounter Additional Impression: Cat scratch of multiple sites ER Course 53-year-old female presents to the emergency department complaining of sustaining multiple cat bites approximately one hour ago from her pet cat. Patient states she is not up-to-date with tetanus this however her cat is up-to- date with all of its vaccinations. Patient also reports a few scratches as well. Patient denies taking blood thinning medications or having a history of immunocompromise. She denies pain at this time. She reports some swelling about the bite sites. Ddx considered but are not limited to Cellulitis, rabies, fracture, neurovascular compromise of extremity. Vital signs: are WNL, pt. is afebrile H&PE are most consistent with Cat bite and scratches -Multiple small puncture wounds and superficial scratches to the left wrist and forearm. mild swelling about the wounds, no erythema, no warmth, not bleeding at this time. . ORDERS: none required at this time, the diagnosis is clinical ED INTERVENTIONS: -Copious pressure irrigation - Bacitracin is applied Tetanus vaccination is administered. DISCHARGE: At this time pt. is stable for d/c to home. Will provide printed patient care instructions, and any necessary prescriptions. Care plan and follow up instructions have been discussed with the patient prior to discharge. Last Vital Signs Date Time Temp Pulse Resp B/P (MAP) Pulse Ox O2 Delivery O2 Flow Rate FiO2 09/28/18 14:42 98.6 94 16 135/10 96 Room Air Disposition: HOME, SELF-CARE Condition: Stable Scripts Bacitracin/Polymyxin B Sulfate (BACITRACIN-POLYMYXIN OINTMENT) 28.35 Gm Oint...g. 1 APPLIC TP BID, #28.3 GM Prov: Pricila Stovall 09/28/18 Ibuprofen* (MOTRIN*) 600 Mg Tablet 600 MG ORAL THREE TIMES A DAY, #20 TAB 0 Refills Prov: Pricila Stovall 09/28/18 Amoxicillin/Potassium Clav 875-125* (AUGMENTIN 875-125 TABLET*) 1 Each Tablet 1 TAB ORAL TWICE A DAY for 7 Days, #14 TAB Prov: Pricila Stovall 09/28/18 Patient Instructions: Animal Bite, [id number] Additional Instructions: Take medications as directed. Follow up with a Primary Care Provider in 3-5 days, even if your symptoms have resolved. --Please review list of primary care clinics, if you do not already have a primary care provider Return sooner to ED if new symptoms occur, or current symptoms become worse. - Please note that this Emergency Department Report was dictated using [employer] transcriptionist technology software, occasionally this can lead to erroneous entry secondary to interpretation by the dictation equipment. Pricila Stovall Sep 28, 2018 15:01
[2018-09-28] MEDS ORDERED: BACITRACIN-P28.35 GM TP (15:06)
[2018-09-28] MEDS ORDERED: IBUPROFEN600 MG ORAL (15:06)
[2018-09-28] MEDS ORDERED: AUGMENTIN 875-1 EAC1 ORAL (15:06)
[2018-09-28 15:19] VITALS: BP 128/86
--- NOTE | 2018-09-28 15:19 | NUR ---
ED Nurse Note: Pt wound irrigated with NS and dried, applied bacitracin per MD order, pt tolerated well, pt discharge instruction provided w/ prescription, pt education done via discussion and handout, pt advised to follow up w/ pcp 2-3days, pt verbalized understanding and agrees with plan, pt wrist band removed, pt ambulatory w/ steady gait, vss, all belongings left w/ pt.
== END 2018-09-28 15:45 | disposition home or self-care (01) ==
LOC: EMR 15:40
DX: S60.812A Abrasion of left wrist, initial encounter (principal); S50.812A Abrasion of left forearm, initial encounter; S61.532A Puncture wound without foreign body of left wrist, initial encounter; S51.832A Puncture wound without foreign body of left forearm, initial encounter; W55.03XA Scratched by cat, initial encounter; Y92.009 Unspecified place in unspecified non-institutional (private) residence as the place of occurrence of the external cause; Z23 Encounter for immunization; I10 Essential (primary) hypertension; E11.9 Type 2 diabetes mellitus without complications; K21.9 Gastro-esophageal reflux disease without esophagitis
CPT/HCPCS: 90471; 90715; 99283

== ENCOUNTER 2019-02-03 12:06 | Emergency (ER) | payer MEDICAID ==
[~2019-02-03] VITALS: Ht 182.9 cm; Wt 141.1 kg
[~2019-02-03 12:06] MED LIST changes: +AUGMENTIN 875-1 EAC1 ORAL; +BACITRACIN-P28.35 GM TP; +IBUPROFEN600 MG ORAL
--- NOTE | 2019-02-03 12:30 | NUR ---
ED Nurse Note: Pt ambulated to ED from home c/o diarrhea for 1 month with urgency, Pt is A&Ox4, VSS. Denies chest pain, fever or SOB. Pt has changed diet and metformin dosage starting one month ago. Intentional 16lb weight lose. Pt denies abdominal pain.
[2019-02-03 12:38] VITALS: BP 133/75
[2019-02-03] MEDS ORDERED: Dicyclomine HCl 10mg/5ml oral soln ORAL ONE (13:00)
[2019-02-03 13:30] LABS: APPEARANCE,URINE CLEAR; BILIRUBIN, URINE NEGATIVE (NEGATIVE); COLOR,URINE PALE YELLOW; GLUCOSE, URINE (UA) NEGATIVE (NEGATIVE); KETONES,URINE NEGATIVE (NEGATIVE); LEUKOCYTE ESTERASE ,URINE 1+ (NEGATIVE); NITRITE,URINE NEGATIVE (NEGATIVE); PH,URINE 6.5 (4.5-8.0); PROTEIN,URINE NEGATIVE (NEGATIVE); UROBILINOGEN,URINE NORMAL MG/DL (0.0-1.0)
[2019-02-03 13:31] LABS: BASOPHILS % (AUTO) 1.3 % (0.0-2.0); EOSINOPHILS % (AUTO) 3.9 % (0.0-3.0); HEMATOCRIT 43.8 % (37.0-47.0); LYMPHOCYTES % (AUTO) 44.8 % (20.0-45.0); MEAN CORPUSCULAR VOLUME 83 FL (80-99); MONOCYTES % (AUTO) 6.1 % (1.0-10.0); NEUTROPHILS % (AUTO) 43.9 % (45.0-75.0); PLATELET COUNT 327 K/UL (150-450); RED BLOOD COUNT 5.31 M/UL (4.20-5.40); RED CELL DISTRIBUTION WIDTH 12.6 % (11.6-14.8); WHITE BLOOD COUNT 6.9 K/UL (4.8-10.8)
--- NOTE | 2019-02-03 13:32 | Emergency Room Report ---
History of Present Illness General Chief Complaint: Diarrhea Source: Patient Present Illness HPI Patient presents with a month of diarrhea. The began when she increased her metformin to 850 mg. She was moved back to 500 mg twice a day. At that beginning she was moving her bowels 5 times a day. She denies any blood or mucus. It's been brownish in color. Doesn't seem her diet has altered. Denies any fevers or chills. She denies any abdominal pain but feels the urge to move her bowels. She's been eating less recently in an attempt to loose weight. She only moved her bowels once yesterday. She is concerned about irritable bowel syndrome or Crohn's disease even though there is no family history of this. The patient's blood sugar was 145 yesterday. She feels somewhat dehydrated. Recently the patient was evaluated for a bleeding fibroid. Her bleeding is not significant at this time. Was determined that she did not need a blood transfusion when she was evaluated for this. She also has a history of asthma and bronchitis. Several weeks ago she was treated with prednisone. No chest pain, palpitations, dysuria, shortness of breath, visual changes, headache. Some anxiety. Allergies: Coded Allergies: CIPROFLOXACIN (Verified Allergy, Unknown, 02/03/19) Patient History Past Medical History: see triage record Social History: Denies: smoking Social History Narrative from home Now: No Reviewed Nursing Documentation: PMH: Agreed; PSxH: Agreed Nursing Documentation-PMH Hx Hypertension: Yes Hx Asthma: Yes Hx Diabetes: Yes Hx Gastrointestinal Problems: Yes - gerd Review of Systems All Other Systems: negative except mentioned in HPI Physical Exam Vital Signs Date Time Temp Pulse Resp B/P (MAP) Pulse Ox O2 Delivery O2 Flow Rate FiO2 02/03/19 12:20 98.4 81 22 95 Room Air 02/03/19 12:38 133/75 Sp02 EP Interpretation: reviewed, normal General Appearance: well appearing, no apparent distress, GCS 15 Head: normocephalic Eyes: bilateral eye normal inspection, bilateral eye PERRL ENT: moist mucus membranes Neck: supple Respiratory: lungs clear, normal breath sounds Cardiovascular #1: regular rate, rhythm Cardiovascular #2: 2+ radial (R) Gastrointestinal: normal inspection, normal bowel sounds, non tender, no mass, non-distended, overweight Genitourinary: no CVA tenderness Musculoskeletal: back normal, gait/station normal, normal range of motion Neurologic: alert, oriented x3, grossly normal Psychiatric: mood/affect normal Skin: normal inspection, warm/dry Medical Decision Making Diagnostic Impression: Primary Impression: Diarrhea Qualified Codes: R19.7 - Diarrhea, unspecified Additional Impression: Diabetes Qualified Codes: E11.9 - Type 2 diabetes mellitus without complications ER Course Diabetic patient presents with diarrhea for a month. Differential includes adverse reaction to medication, gastroenteritis, electrolyte imbalance, irritable bowel syndrome, dehydration amongst others. The patient will be evaluated with labs, abdominal films. The patient will be treated with IV hydration and Bentyl. Labs unremarkable. Abdominal film nonspecific bowel gas pattern. No obstruction. Patient improved treatment. Discussed findings with patient. Also discussed that prednisone might cause alterations in her blood glucose (she was taking this for her asthma several weeks ago). By her history the problem is improving. Symptomatic treatment is indicated. Also follow-up with her doctors. Patient stable for outpatient observation and treatment. Laboratory Tests Test 02/03/19 12:53 02/03/19 13:04 Urine Color Pale yellow Urine Appearance Clear Urine pH 6.5 (4.5-8.0) Urine Specific [place] 1.010 (1.005-1.035) Urine Protein Negative (NEGATIVE) Urine Glucose (UA) Negative (NEGATIVE) Urine Ketones Negative (NEGATIVE) Urine Blood 4+ (NEGATIVE) H Urine Nitrite Negative (NEGATIVE) Urine Bilirubin Negative (NEGATIVE) Urine Urobilinogen Normal MG/DL (0.0-1.0) Urine Leukocyte Esterase 1+ (NEGATIVE) H Urine RBC 5-10 /HPF (0 - 2) H Urine WBC 0-2 /HPF (0 - 2) Urine Squamous Epithelial Cells Few /LPF (NONE/OCC) Urine Bacteria Few /HPF (NONE) White Blood Count 6.9 K/UL (4.8-10.8) Red Blood Count 5.31 M/UL (4.20-5.40) Hemoglobin 14.0 G/DL (12.0-16.0) Hematocrit 43.8 % (37.0-47.0) Mean Corpuscular Volume 83 FL (80-99) Mean Corpuscular Hemoglobin 26.3 PG (27.0-31.0) L Mean Corpuscular Hemoglobin Concent 31.9 G/DL (32.0-36.0) L Red Cell Distribution Width 12.6 % (11.6-14.8) Platelet Count 327 K/UL (150-450) Mean Platelet Volume 5.8 FL (6.5-10.1) L Neutrophils (%) (Auto) 43.9 % (45.0-75.0) L Lymphocytes (%) (Auto) 44.8 % (20.0-45.0) Monocytes (%) (Auto) 6.1 % (1.0-10.0) Eosinophils (%) (Auto) 3.9 % (0.0-3.0) H Basophils (%) (Auto) 1.3 % (0.0-2.0) Sodium Level 140 MMOL/L (136-145) Potassium Level 4.0 MMOL/L (3.5-5.1) Chloride Level 102 MMOL/L (98-107) Carbon Dioxide Level 30 MMOL/L (21-32) Anion Gap 8 mmol/L (5-15) Blood Urea Nitrogen 10 mg/dL (7-18) Creatinine 0.8 MG/DL (0.55-1.30) Estimate Glomerular Filtration Rate > 60 mL/min (>60) Glucose Level 141 MG/DL (74-106) H Calcium Level 9.8 MG/DL (8.5-10.1) Total Bilirubin 0.4 MG/DL (0.2-1.0) Aspartate Amino Transferase (AST) 18 U/L (15-37) Alanine Aminotransferase (ALT) 38 U/L (12-78) Alkaline Phosphatase 135 U/L (46-116) H Total Protein 8.0 G/DL (6.4-8.2) Albumin 4.1 G/DL (3.4-5.0) Globulin 3.9 g/dL Albumin/Globulin Ratio 1.1 (1.0-2.7) Lipase 116 U/L (73-393) Other X-Ray Diagnostic Results Other X-Ray Diagnostic Results : X-Ray ordered: Abdomen # of Views/Limited Vs Complete: 2 View Indication: Other EP Interpretation: Yes Interpretation: nonspecific bowel gas, no sbo, other - occasions or masses Impression: Other Electronically Signed by: Electronically signed by Melchor Braswell MD Last Vital Signs Date Time Temp Pulse Resp B/P (MAP) Pulse Ox O2 Delivery O2 Flow Rate FiO2 02/03/19 14:51 98.4 80 20 130/72 97 Room Air Status: improved Disposition: HOME, SELF-CARE Condition: Improved Scripts Loperamide HCl (Loperamide) 2 Mg Capsule 2 MG ORAL Q6HR, #16 CAP 0 Refills Prov: Melchor Braswell MD 02/03/19 Dicyclomine Hcl* (DICYCLOMINE HCL*) 10 Mg Capsule 10 MG ORAL QID PRN for cramps, #10 CAP Prov: Melchor Braswell MD 02/03/19 Referrals: [facility],REFERRING (PCP) Melchor Braswell MD February 03, 2019 13:32
[2019-02-03 13:45] LABS: ANION GAP 8 mmol/L (5-15); BLOOD UREA NITROGEN 10 mg/dL (7-18); CALCIUM 9.8 MG/DL (8.5-10.1); CARBON DIOXIDE 30 MMOL/L (21-32); CHLORIDE 102 MMOL/L (98-107); CREATININE 0.8 MG/DL (0.55-1.30); SODIUM 140 MMOL/L (136-145)
[2019-02-03 13:51] LABS: ALANINE AMINOTRANSFERASE 38 U/L (12-78); ALBUMIN 4.1 G/DL (3.4-5.0); ALBUMIN/GLOBULIN RATIO 1.1 (1.0-2.7); ALKALINE PHOSPHATASE 135 U/L (46-116); ASPARTATE AMINO TRANSFERASE 18 U/L (15-37); BILIRUBIN,TOTAL 0.4 MG/DL (0.2-1.0)
[2019-02-03 14:43] VITALS: BP 140/79
[2019-02-03] MEDS ORDERED: IMODIUM2 MG ORAL (14:43)
[2019-02-03] MEDS ORDERED: DICYCLOMINE HCL10 MG ORAL (14:43)
[2019-02-03 14:51] VITALS: BP 130/72
--- NOTE | 2019-02-03 14:53 | NUR ---
ER DISCHARGE NOTE: Patient is cleared to be discharged per ERMD, pt is aox4, on room air, with stable vital signs. pt was given dc and prescription instructions, pt was able to verbalize understanding, pt id band and iv site removed without complications. pt is able to ambulate with steady gait. pt took all belongings.
--- NOTE | 2019-02-04 11:49 | Diagnostic Imaging Report ---
Indication: Abdominal pain Comparison: None Single view of the abdomen obtained Findings: Bowel gas pattern is nonspecific. No mass, ectopic calcifications, or abnormal gas collections are identified. Degenerative changes of the lumbar spine noted. Impression: No acute findings
[2019-02-10] MEDS ORDERED: BACITRACIN-P28.35 GM TP (12:06)
[2019-02-10] MEDS ORDERED: ANTI-ITCH28 G1 TP (12:06)
== END 2019-02-03 14:53 | disposition home or self-care (01) ==
LOC: EMR 12:35
DX: R19.7 Diarrhea, unspecified (principal); E11.9 Type 2 diabetes mellitus without complications; Z79.84 Long term (current) use of oral hypoglycemic drugs; Z88.8 Allergy status to other drugs, medicaments and biological substances; I10 Essential (primary) hypertension; K21.9 Gastro-esophageal reflux disease without esophagitis; E66.3 Overweight; Z68.41 Body mass index [BMI] 40.0-44.9, adult
CPT/HCPCS: 36415; 74018; 80053; 81003; 83690; 85025; 96360; 99284

== ENCOUNTER → 2019-09-19 | Emergency (ER) | payer MEDICAID ==
[~2019-09-19] VITALS: Ht 185.4 cm; Wt 136.1 kg
[~2019-09-19] MED LIST changes: +ANTI-ITCH28 G1 TP; +DICYCLOMINE HCL10 MG ORAL; +FLONASE ALLERG9.9 ML NS; +IMODIUM2 MG ORAL; +PROMETHAZI6.25 MG/1 ORAL
[2019-09-19 13:37] VITALS: BP 139/78
--- NOTE | 2019-09-19 13:45 | NUR ---
ED Nurse Note: Patient walked into ED from home c/o coughing with yellow phlegm for 2 weeks. patient reports "a lot of mucus" in the throat. patient reports she had sore throat and cold symptoms initially. patient is alert awake x4 ambulatory, breathing unlabored and even, speaking in full sentences.
--- NOTE | 2019-09-19 13:52 | Emergency Room Report ---
History of Present Illness General Chief Complaint: Upper Respiratory Illness Source: Patient Present Illness HPI 54-year-old female with history of type 2 diabetes currently controlled with metformin here complaining of 2 weeks of cough and congestion as well as a 10 out of 10 sore throat. Complains of sinus pressure, however denies shortness of breath, chest pain, palpitation, abdominal pain nausea vomiting. Has not taken medication for symptom relief. Patient is requesting a cough syrup. After writing regular Phenergan patient reports Phenergan with codeine which I explained to her that cannot be given at this time is regular Phenergan will be just as helpful due to patient's presentation. Denies any recent travel, fever and chills. Allergies: Coded Allergies: CIPROFLOXACIN (Verified Allergy, Unknown, 02/03/19) Patient History Past Medical History: see triage record Past Surgical History: unable to obtain Pertinent Family History: none Last Menstrual Period: 2017 Now: No Immunizations: UTD Reviewed Nursing Documentation: PMH: Agreed; PSxH: Agreed Nursing Documentation-PMH Past Medical History: No History, Except For Hx Hypertension: Yes Hx Asthma: Yes Hx Diabetes: Yes Hx Gastrointestinal Problems: Yes - gerd Review of Systems All Other Systems: negative except mentioned in HPI Physical Exam Vital Signs Date Time Temp Pulse Resp B/P (MAP) Pulse Ox O2 Delivery O2 Flow Rate FiO2 09/19/19 13:37 98.4 87 17 139/78 98 Room Air Sp02 EP Interpretation: reviewed, normal General Appearance: no apparent distress, alert, GCS 15, non-toxic Head: normocephalic, atraumatic Eyes: bilateral eye normal inspection, bilateral eye PERRL ENT: hearing grossly normal, no angioedema, nasal congestion, pharyngeal erythema, other - Frontal sinuses tender to palpation Neck: full range of motion, supple, thyroid normal, no meningismus, no bony tend, supple/symm/no masses Respiratory: chest non-tender, lungs clear, normal breath sounds, no rhonchi, no respiratory distress, no retraction, no wheezing, speaking full sentences Cardiovascular #1: regular rate, rhythm, no edema, no murmur, normal capillary refill Gastrointestinal: normal bowel sounds, non tender, soft, no mass, non-distended , no guarding, no rebound Rectal: deferred Genitourinary: no CVA tenderness Musculoskeletal: back normal, no calf tenderness Neurologic: alert, motor strength/tone normal, oriented x3, sensory intact, responsive, speech normal Psychiatric: judgement/insight normal, memory normal, mood/affect normal, no suicidal/homicidal ideation Skin: no rash, normal color Lymphatic: no adenopathy Medical Decision Making PA Attestation Diagnosis and treatment plans were reviewed and discussed with my supervising physician Dr. Shay Diagnostic Impression: Primary Impression: Acute frontal sinusitis ER Course 54-year-old female with history of type 2 diabetes currently controlled with metformin here complaining of 2 weeks of cough and congestion as well as a 10 out of 10 sore throat. Complains of sinus pressure, however denies shortness of breath, chest pain, palpitation, abdominal pain nausea vomiting. Has not taken medication for symptom relief. Patient is requesting a cough syrup. After writing regular Phenergan patient reports Phenergan with codeine which I explained to her that cannot be given at this time is regular Phenergan will be just as helpful due to patient's presentation. Denies any recent travel, fever and chills. Ddx considered but are not limited to: Sinusitis, strep pharyngitis, URI, tonsillitis, peritonsillar abscess, influenza Vital signs: are WNL, pt. is afebrile H&PE are most consistent with: Sinusitis ORDERS: Augmentin, Flonase, Phenergan ED INTERVENTIONS: None required at this time. DISCHARGE: At this time pt. is stable for d/c to home. Will provide printed patient care instructions, and any necessary prescriptions. Care plan and follow up instructions have been discussed with the patient prior to discharge. At this time no chest x-ray needed as lungs are clear to auscultation. Patient reports that she is taking her metformin and since is requesting a cough syrup advised her to take it only 3 times a day due to sugar content and also keep checking sugars as Phenergan contains glucose. Follow-up with primary care provider, if worsening symptoms return to emergency room Last Vital Signs Date Time Temp Pulse Resp B/P (MAP) Pulse Ox O2 Delivery O2 Flow Rate FiO2 09/19/19 13:49 84 17 Room Air 09/19/19 13:37 98.4 139/78 (98) 98 Disposition: HOME, SELF-CARE Condition: Stable Scripts Promethazine Hcl (PROMETHAZINE HCL*) 6.25 Mg/5 Ml Syrup 5 ML ORAL Q8H, #120 ML 0 Refills Prov: Celso Ann 09/19/19 Fluticasone Propionate (Flonase Allergy Relief) 9.9 Ml [place].susp 2 SPRAYS NS BID, #10 ML Prov: Celso Ann 09/19/19 Amoxicillin/Potassium Clav 875-125* (AUGMENTIN 875-125 TABLET*) 1 Each Tablet 1 TAB ORAL TWICE A DAY for 10 Days, #20 TAB Prov: Celso Ann 09/19/19 Patient Instructions: Sinusitis, Adult, [id number] Additional Instructions: Take medication as directed, follow-up with your primary care provider, if worsening symptoms return to emergency room Celso Ann Sep 19, 2019 13:52
== END | disposition home or self-care (01) ==
LOC: EMR 13:52
DX: J01.10 Acute frontal sinusitis, unspecified (principal); E11.9 Type 2 diabetes mellitus without complications; I10 Essential (primary) hypertension; Z88.8 Allergy status to other drugs, medicaments and biological substances; Z79.84 Long term (current) use of oral hypoglycemic drugs; K21.9 Gastro-esophageal reflux disease without esophagitis
CPT/HCPCS: 99282